=== PATIENT | female | born 1965 | race Native Hawaiian/Other Pacific Islander ===

== ENCOUNTER 2018-02-02 08:46 | Emergency (ER) | payer OTHER ==
[~2018-02-02] VITALS: Ht 175.3 cm; Wt 98.4 kg
[2018-02-02] MEDS ORDERED: DOXE25CA18 PO (08:54)
[2018-02-02] MEDS ORDERED: HYDR10TA47 PO (08:55)
[2018-02-02] MEDS ORDERED: ALPR0.5T24 PO (08:56)
[2018-02-02] MEDS ORDERED: ESTR1TAB13 PO (08:56)
[2018-02-02] MEDS ORDERED: IMITREX100 MG PO (08:57)
[2018-02-02] MEDS ORDERED: GABA400C2 PO (08:58)
[2018-02-02] MEDS ORDERED: CARV12.5 PO (08:59)
[2018-02-02] MEDS ORDERED: QUET25TA2 PO (08:59)
[2018-02-02] MEDS ORDERED: TOPAMAX100 MG PO (08:59)
[2018-02-02 09:22] LABS: PLATELET COUNT 239 K/uL (152-353)
[2018-02-02 09:32] LABS: POTASSIUM 3.6 mmol/L (3.6-5.2)
[2018-02-02 12:50] VITALS: BP 120/69; TEMP 97.2
== END 2018-02-02 12:52 | disposition home or self-care (01) ==
LOC: ED 08:46
DX: R10.12 Left upper quadrant pain (principal); D36.9 Benign neoplasm, unspecified site; Z98.890 Other specified postprocedural states
CPT/HCPCS: 80053; 81000; 85027; 99283; Q9963